=== PATIENT | male | born 1985 | race Caucasian/White ===

== ENCOUNTER 2022-08-12 14:38 | Observation (INO) | payer OTHER ==
--- OUTSIDE RECORDS SUMMARY | 2022-08-12 14:40 | XMS REPORT | Continuity of Care Document ---
:1985 Author Organization [facility] t Address [address] [place] [address] [place] [id number] Care Team Providers Name Role Phone WU BOWDEN Attending Clinician Unavailable Provider, [facility] Attending Clinician Unavailable Donal Shrestha Attending Clinician DONAL BLAKE Attending Clinician Unavailable Payers Payer Name Policy Type Policy Number Effective Date Expiration Date S lauren [employer] CHOICE POS [id number] 2018 00:00:00 II Problems Condition Condition Condition Status Onset Resolution Last Treating Co mments Source Name Details Category Date Date Treatment Clinician Date No known No known Disease Unive rs active active ity of problems problems [facility] Allergies, Adverse Reactions, Alerts Allergy Allergy Status Severity Reaction(s) Onset Inactive Treating Comm ents Source Name Type Date Date Clinician NO KNOWN Drug Active Univers ALLERGIE Class ity of [facility] Social History Social Habit Start Date Stop Date Quantity Comments Source Sex Assigned At [facility] Exposure to Not sure [facility] SARS-CoV-2 (event) Medica l Branch Tobacco use and 2019-12-30 2019-12-30 Never used [facility] exposure 00:00:00 00:00:00 [facility] Smoking Status Start Date Stop Date Source Never smoker [facility] Medications Ordered Filled Start Stop Current Ordering Indication Dosage Frequency Signature Comments Components Source Medication Medication Date Date Medication? Clinician (SIG) Name Name amoxicillin 2020- No [id number] 875mg Take 1 Univers 875 mg 12-29 tablet by ity of tablet 00:00: 04:59 mouth 2 [place] 00 :00 (two) Medical times [place] daily for 10 days. neomycin-po 2020- No [id number] 3[drp] Place 3 Univers lymyxin-hyd 12-29 Drops in ity of rocortisone 00:00: 04:59 left ear 3 [place] 3.5-10,000- 00 :00 (three) Medic al 1 times Branch mg/mL-unit/ daily for mL-% otic 7 days. susp levothyroxi Yes Univer s ne 100 mcg 10-29 ity of tablet 00:00: [address] Vital Signs Vital Name Observation Time Observation Value Comments Source Systolic blood 2019-12-30 18:54:00 115 mm[Hg] Univer [facility]ity of [facility] Diastolic blood 2019-12-30 18:54:00 78 mm[facility]Hg[facility] rate 2019-12-30 18:54:00 99 /min [facility] Body temperature 2019-12-30 18:54:00 37 Jennifer [facility] Respiratory rate 2019-12-30 18:54:00 18 /min [facility] Body height 2019-12-30 18:54:00 165.1 cm [facility] Body weight 2019-12-30 18:54:00 92.987 kg [facility] BMI 2019-12-30 18:54:00 34.11 kg/m2 [facility] Oxygen saturation in 2019-12-30 18:54:00 98 /min [facility] Arterial blood by [facility] Pulse oximetry Branch Procedures This patient has no known procedures. Encounters Start End Encounter Admission Attending Care Care Encounter Source Date/Time Date/Time Type Type Clinicians Facility Department ID 2020-01-19 2020-01-19 Outpatient R [facility] [id number] Univers 16:20:00 16:20:00 [id number]-01-19 2020-01-19 Outpatient R KAL, [facility] [id number] Univers 16:20:00 16:20:[address] [facility] 2019-12-30 2019-12-30 Urgent Provider, [facility] [id number] Univers 13:44:56 14:11:16 Donal Tong [facility] [id number] ity [place] [id number] Moe as Jose [phone] [place] [address] [address] 2019-12-30 2019-12-30 Outpatient R LOU [facility] [id number] Univers 14:00:00 14:00:00 DONAL galan [facility] Results This patient has no known results.
[2022-08-12 15:25] LABS: Absolute Lymphocytes (CBC) 2.2 K/uL (0.7-4.9); Lymphocytes % 24.8 % (15.3-44.8); MCV 89.5 fL (80-100); MPV 6.5 fL (7.6-11.3); RBC Red Blood Cell Count 5.27 M/uL (4.33-5.43)
[2022-08-12 15:37] LABS: Hematocrit 48.8 % (39.6-49.0)
[2022-08-12 15:50] LABS: BUN Blood Urea Nitrogen 18 mg/dL (7-18); Bicarbonate 26 mEq/L (21-32); Glomerular Filtration Rate 82 ml/min (=/>90); Glucose Level 96 mg/dL (74-106); Sodium Level 138 mEq/L (136-145); Thyroid Stimulating Hormone 0.027 uIU/mL (0.358-3.740); Troponin High Sensitivity 3.8 pg/mL (<58.9)
[2022-08-12 15:55] LABS: NT PRO-BNP < 5 pg/mL (<125); Potassium 3.7 mEq/L (3.5-5.1)
--- NOTE | 2022-08-12 16:11 | RAD REPORT ---
EXAM DESCRIPTION: RAD - Chest Single View - 08/12/2022 4:04 pm CLINICAL HISTORY: CHEST PAIN COMPARISON: No comparisonsNo comparisons FINDINGS: Lines: None. Lungs: No evidence of edema or pneumonia. Pleural: No significant pleural effusions or pneumothorax. Cardiac: The heart size is within normal limits. Mediastinum: Within normal limits. Bones: No acute fractures. Other: None IMPRESSION: No acute cardiopulmonary disease.
[2022-08-12] MEDS ORDERED: METOPROLOL TAR 50 MG TAB ONE (16:14)
--- NOTE | 2022-08-12 16:20 | EDPHYS ---
Physician Documentation [facility] Name: Balbir Pederson Age: 37 yrs Sex: Male : 1985 Arrival Date: 08/12/2022 Time: 14:41 Bed 14 Private MD: ED Physician Jan Mancia HPI: 08/12 14:55 This 37 yrs old Male presents to ER via Ambulatory with complaints of Chest Pain, High jh7 Blood Pressure. 14:55 Onset: The symptoms/episode began/occurred 1 week(s) ago. Associated signs and jh7 symptoms: Pertinent positives: tremors, HTN, Pertinent negatives: abdominal pain, fever, shortness of breath, vomiting, wheezing. 37-year-old male complains of chest pain for the past week that became slightly worse today. Also reports hand tremors and blood pressure of 174/108 at home. Denies a history of hypertension. Reports a past medical history of Chi's with hypothyroidism. Reports that his PCP is at the [facility].. Historical: - Allergies: 14:56 Red Dye; aa5 - PMHx: 14:56 Hypothyroidism; aa5 - Immunization history:: Adult Immunizations unknown. - Social history:: Smoking status: Patient denies any tobacco usage or history of. ROS: 14:55 Constitutional: Negative for fever, chills, and weight loss, Eyes: Negative for injury, jh7 pain, redness, and discharge, ENT: Negative for injury, pain, and discharge, Neck: Negative for injury, pain, and swelling, Cardiovascular: Negative for chest pain, palpitations, and edema, Respiratory: Negative for shortness of breath, cough, wheezing, and pleuritic chest pain, Abdomen/GI: Negative for abdominal pain, nausea, vomiting, diarrhea, and constipation, Back: Negative for injury and pain, MS/Extremity: Negative for injury and deformity, Skin: Negative for injury, rash, and discoloration. 14:55 Cardiovascular: Positive for chest pain, Negative for orthopnea, palpitations. 14:55 Neuro: Positive for tremor, Negative for altered mental status, headache, numbness, syncope, tingling. Exam: 14:58 Constitutional: This is a well developed, well nourished patient who is awake, alert, jh7 and in no acute distress. Head/Face: Normocephalic, atraumatic. Eyes: Pupils equal round and reactive to light, extra-ocular motions intact. Lids and lashes normal. Conjunctiva and sclera are non-icteric and not injected. Cornea within normal limits. Periorbital areas with no swelling, redness, or edema. Neck: Trachea midline, no thyromegaly or masses palpated, and no cervical lymphadenopathy. Supple, full range of motion without nuchal rigidity, or vertebral point tenderness. No Meningismus. Cardiovascular: Regular rate and rhythm with a normal S1 and S2. No gallops, murmurs, or rubs. Normal PMI, no JVD. No pulse deficits. Respiratory: Lungs have equal breath sounds bilaterally, clear to auscultation and percussion. No rales, rhonchi or wheezes noted. No increased work of breathing, no retractions or nasal flaring. Abdomen/GI: Soft, non-tender, with normal bowel sounds. No distension or tympany. No guarding or rebound. No evidence of tenderness throughout. Back: No spinal tenderness. No costovertebral tenderness. Full range of motion. Skin: Warm, dry with normal turgor. Normal color with no rashes, no lesions, and no evidence of cellulitis. MS/ Extremity: Pulses equal, no cyanosis. Neurovascular intact. Full, normal range of motion. Neuro: Awake and alert, GCS 15, oriented to person, place, time, and situation. Motor strength 5/5 in all extremities. Sensory grossly intact. Normal gait. Vital Signs: 14:50 BP 167 / 102; Pulse 106; Resp 18 S; Temp 98.3(TE); Pulse Ox 96% on R/A; Weight 92.53 kg aa5 (R); Height 5 ft. 5 in. (R); 15:16 BP 157 / 85; Pulse 102; Resp 16; Pulse Ox 97% on R/A; ss 15:40 BP 157 / 85; Pulse 110; Pulse Ox 97% on R/A; ss 16:06 BP 143 / 89; Pulse 100; ll1 17:14 BP 120 / 87; Pulse 108; Resp 16; Pulse Ox 95% on R/A; ll1 17:37 BP 117 / 81; Pulse 97; Resp 16; Pulse Ox 97% on R/A; Pain 2/10; ll1 14:50 Body Mass Index 33.95 (92.53 kg, 165.1 cm) aa5 17:37 Pain Scale: Adult ll1 MDM: 14:42 Patient medically screened. [facility] 16:29 Differential diagnosis: Acute VA, hypothyroidism, ACS, thyroid storm, anxiety. Data [facility] reviewed: vital signs, nurses notes, lab test result(s), EKG, radiologic studies, plain films. Consideration of Admission/Observation Patient was admitted/placed on observation. Management of patient was discussed with the following: Hospitalist: VAIBHAV Quijano for Dr. Muir. I considered the following discharge prescriptions or medication management in the emergency department Medications were administered in the Emergency Department. See MAR. Care significantly affected by the following chronic conditions: Chi's thyroiditis. Counseling: I had a detailed discussion with the patient and/or guardian regarding: the historical points, exam findings, and any diagnostic results supporting the discharge/admit diagnosis, the need for further work-up and treatment in the hospital. Response to treatment: the patient's symptoms have mildly improved after treatment. ED course: The patient remained hemodynamically stable throughout the ER visit. Reports that his chest pain improved after aspirin administration. Informed him that he would be admitted to the hospital for observation.. 08/12 14:53 Order name: Basic Metabolic Panel; Complete Time: 16:00 [facility] 08/12 14:53 Order name: CBC with Diff; Complete Time: 15:43 [facility] 08/12 14:53 Order name: NT PRO-BNP; Complete Time: 16:00 [facility] 08/12 14:53 Order name: Troponin HS; Complete Time: 16:00 [facility] 08/12 14:53 Order name: TSH; Complete Time: 16:00 [facility] 08/12 16:07 Order name: T4,Total [facility] 08/12 16:54 Order name: Urinalysis w/ reflexes [facility] 08/12 16:54 Order name: Basic Metabolic Panel [facility] 08/12 16:54 Order name: Basic Metabolic Panel [facility] 08/12 16:54 Order name: Basic Metabolic Panel [facility] 08/12 16:54 Order name: Basic Metabolic Panel [facility] 08/12 16:54 Order name: Lipid Profile [facility] 08/12 16:54 Order name: Lipid Profile [facility] 08/12 16:54 Order name: Troponin High Sensitivity [facility] 08/12 16:54 Order name: Troponin High Sensitivity [facility] 08/12 16:54 Order name: Troponin High Sensitivity [facility] 08/12 14:53 Order name: XRAY Chest (1 view); Complete Time: 16:13 [facility] 08/12 14:53 Order name: EKG; Complete Time: 14:54 [facility] 08/12 16:54 Order name: Heart Healthy [facility] 08/12 14:53 Order name: Cardiac monitoring; Complete Time: 14:54 [facility] 08/12 14:53 Order name: EKG - Nurse/Tech; Complete Time: 14:53 [facility] 08/12 14:53 Order name: IV Saline Lock; Complete Time: 15:11 [facility] 08/12 14:53 Order name: Labs collected and sent; Complete Time: 15:11 [facility] 08/12 14:53 Order name: O2 Per Protocol; Complete Time: 14:53 [facility] 08/12 14:53 Order name: O2 Sat Monitoring; Complete Time: 14:53 [facility] EC:58 Rate is 96 beats/min. Rhythm is regular. QRS [place] is Normal. WA interval is normal at [facility] 114 msec. QRS interval is normal at 92 msec. QT interval is normal at 320 msec. No Q waves. T waves are Normal. No ST changes noted. Clinical impression: Normal ECG. Administered Medications: 15:01 Drug: Aspirin PO Chewable Tablet 324 mg Route: PO; kc6 16:07 Follow up: Response: No adverse reaction ll1 16:14 Drug: Metoprolol PO 50 mg Route: PO; ll1 17:42 Follow up: Response: No adverse reaction 1 Disposition: 18:44 I agree with the assessment and plan of care. [facility] Disposition Summary: 08/12/22 16:19 Hospitalization Ordered Hospitalization Status: Observation [facility] Provider: Luis Muir [facility] Location: Telemetry/MedSurg (observation) [facility] Condition: Stable [facility] Problem: new [facility] Symptoms: are unchanged [facility] Bed/Room Type: Standard [facility] Room Assignment: 210(08/12/22 17:31) bd Diagnosis - Chest pain, unspecified [facility] - Hyperthyroidism [facility] Forms: - Medication Reconciliation Form [facility] - SBAR form [facility] Signatures: Dispatcher [employer] [facility] Krystin Buenrostro Audri, RN RN aa5 Virgilio Mcclellan RN RN ll1 Jan Mancia MD MD 11 Saira White FNP BULLET SWAGING MACHINE OPERATOR jh7 Ashley Gates RN RN kc6 Corrections: (The following items were deleted from the chart) 17:31 16:19 frank osorio
--- NOTE | 2022-08-12 16:20 | ER ---
Nurse's Notes [facility] Name: Balbir Pederson Age: 37 yrs Sex: Male : 1985 Arrival Date: 08/12/2022 Time: 14:41 Bed 14 Private MD: Diagnosis: Chest pain, unspecified;Hyperthyroidism Presentation: 08/12 14:50 Chief complaint: Patient states: chest pain x 1 week ago and worse today. Pt also aa5 reports tremors. 14:50 Coronavirus screen: At this time, the client does not indicate any symptoms associated aa5 with coronavirus-19. Ebola Screen: Patient denies travel to an Ebola-affected area in the 21 days before illness onset. Initial Sepsis Screen: Does the patient meet any 2 criteria? HR > 90 bpm. Does the patient have a suspected source of infection? No. Patient's initial sepsis screen is negative. Risk Assessment: Do you want to hurt yourself or someone else? Patient reports no desire to harm self or others. Onset of symptoms was July 2022. 14:50 Method Of Arrival: Ambulatory aa5 14:50 Acuity: SÁNCHEZ 3 aa5 Historical: - Allergies: 14:56 Red Dye; aa5 - PMHx: 14:56 Hypothyroidism; aa5 - Immunization history:: Adult Immunizations unknown. - Social history:: Smoking status: Patient denies any tobacco usage or history of. Screenin:42 [facility] ED Fall Risk Assessment (Adult) Score/Fall Risk Level 0 - 2 = Low Risk ss Oriented to surroundings, Maintained a safe environment, Educated pt \T\ family on fall prevention, incl call for assistance when getting out of bed, Hourly rounding (assess needs \T\ fall precautionary measures) done. Abuse screen: Denies threats or abuse. Nutritional screening: No deficits noted. Tuberculosis screening: No symptoms or risk factors identified. Assessment: 15:10 General: Appears uncomfortable, Behavior is cooperative, appropriate for age. General: ss Reports tremors off/on. Pain: Complains of pain in chest Quality of pain is described as aching, Pain began 1 week Is intermittent. Neuro: Reports tremors. Cardiovascular: Reports chest pain. 16:10 Reassessment: No changes from previously documented assessment. Patient and/or family ll1 updated on plan of care and expected duration. Pain level reassessed. Patient is alert, oriented x 3, equal unlabored respirations, skin warm/dry/pink. Karl White PLASTIC SURGERY ASSISTANT at . 16:55 Reassessment: No changes from previously documented assessment. Patient and/or family ll1 updated on plan of care and expected duration. Pain level reassessed. Patient is alert, oriented x 3, equal unlabored respirations, skin warm/dry/pink. 17:38 Reassessment: No changes from previously documented assessment. Patient and/or family ll1 updated on plan of care and expected duration. Pain level reassessed. Patient is alert, oriented x 3, equal unlabored respirations, skin warm/dry/pink. 17:41 Reassessment: No changes from previously documented assessment. Report given to Kellen Del Castillo RN. 17:42 Pain: Pain does not radiate. 1 Vital Signs: 14:50 BP 167 / 102; Pulse 106; Resp 18 S; Temp 98.3(TE); Pulse Ox 96% on R/A; Weight 92.53 kg aa5 (R); Height 5 ft. 5 in. (R); 15:16 BP 157 / 85; Pulse 102; Resp 16; Pulse Ox 97% on R/A; ss 15:40 BP 157 / 85; Pulse 110; Pulse Ox 97% on R/A; ss 16:06 BP 143 / 89; Pulse 100; ll1 17:14 BP 120 / 87; Pulse 108; Resp 16; Pulse Ox 95% on R/A; ll1 17:37 BP 117 / 81; Pulse 97; Resp 16; Pulse Ox 97% on R/A; Pain 2/10; ll1 14:50 Body Mass Index 33.95 (92.53 kg, 165.1 cm) aa5 17:37 Pain Scale: Adult ll1 ED Course: 14:41 Patient arrived in ED. mr 14:41 [facility] 14:41 Jan Mancia MD is Attending Physician. jh7 14:50 Arm band placed on Patient placed in an exam room, on a stretcher. aa5 14:53 Virgilio Mcclellan, MARLY is Primary Nurse. 1 14:56 Triage completed. aa5 15:11 Inserted saline lock: 20 gauge in right antecubital area, using aseptic technique. ss Blood collected. 15:42 Patient has correct armband on for positive identification. Bed in low position. Call ss light in reach. Side rails up X2. Client placed on continuous cardiac and pulse oximetry monitoring. NIBP monitoring applied. beauty artist on. 15:43 No provider procedures requiring assistance completed. Patient maintains SpO2 ss saturation greater than 95% on room air. 16:05 XRAY Chest (1 view) In Process Unspecified. EDNY 16:18 Luis Muir is Hospitalizing Provider. [facility] 17:42 Patient admitted, IV remains in place. ll1 Administered Medications: 15:01 Drug: Aspirin PO Chewable Tablet 324 mg Route: PO; kc6 16:07 Follow up: Response: No adverse reaction 1 16:14 Drug: Metoprolol PO 50 mg Route: PO; 1 17:42 Follow up: Response: No adverse reaction [facility] Medication: 15:42 VIS not applicable for this client. ss Outcome: 16:19 Decision to Hospitalize by Provider. [facility] 17:42 Admitted to Tele accompanied by tech, via wheelchair, room 210, with chart, Report 1 called to Kellen Del Castillo 17:42 Condition: stable 17:42 Instructed on the need for admit. 17:53 Patient left the ED. [facility] Signatures: Dispatcher [employer] LANETTENY MccurdyDaja ortiz mr MccarthyJoi, RN RN hoa5 Yesi De La Garza RN RN Virgilio Hernandez RN RN ll1 Saira White, BANQUET LINE COOK BANQUET LINE COOK Ashley Vasquez, RN RN kc6
--- NOTE | 2022-08-12 16:43 | P.HP ---
Certification for Inpatient Patient admitted to: Observation With expected LOS: <2 Midnights Patient will require the following post-hospital care: None Practitioner: I am a practitioner with admitting privileges, knowledge of patient current condition, hospital course, and medical plan of care. Services: Services provided to patient in accordance with Admission requirements found in Title 42 Section 412.3 of the Code of Federal Regulations Patient History Date of Service: 08/12/22 Reason for admission: Chest pain, HTN History of Present Illness: This is a 37-year-old male with past medical history significant for hypothyroidism. Patient comes to the emergency room with complaints of chest pain and hypertension. Patient reported symptoms started 2 weeks ago with complaints of chest pain, vision changes, palpitation, headaches, chills, and tremors and numbness. He stated his chest pain was 4 out of 10, nonradiating and stabbing in nature. No other contributing factors reported by patient. Patient is currently on Synthroid 225 mcg daily. 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 Patient's chest pain was resolved after taking aspirin in the ER. His blood pressure was 174/108 at home, and in the ED it improved to 145/89. Patient will be admitted under observation under the care of Dr. Muir. We will rule out ACS. Allergies iodine [Iodine] Allergy (Verified 09/17/11 09:43) Hives/Rash Home medications list reviewed: Yes - Past Medical/Surgical History Diabetic: No -: Hypothyroidism Past Surgical History: Patient denies surgical history - Family History Family History: Reviewed- Non-Contributory - Social History Smoking Status: Never smoker Alcohol use: Yes CD- Drugs: No Caffeine use: Yes Place of Residence: Home Review of Systems 10-point ROS is otherwise unremarkable Eyes: Vision Change Cardiovascular: Chest Pain, Palpitations Neurological: Numbness Physical Examination - Vital Signs Temperature: 98.3 F Blood Pressure: 143/89 Pulse: 100 Respirations: 18 Pulse Ox (%): 100 - Physical Exam General: Alert, In no apparent distress, Oriented x3 HEENT: Atraumatic, Normocephalic, PERRLA Neck: Supple Respiratory: Clear to auscultation bilaterally, Normal air movement Cardiovascular: No edema, Normal pulses, Regular rate/rhythm Gastrointestinal: Normal bowel sounds Musculoskeletal: No clubbing, No swelling, No contractures Integumentary: No rashes, No breakdown Neurological: Normal speech, Normal strength at 5/5 x4 extr, Normal tone, Sensation intact Lymphatics: No axilla or inguinal lymphadenopathy - Studies Laboratory Data (last 24 hrs) 08/12/22 15:08: WBC 8.80, Hgb 16.9, Hct 48.8, Plt Count 339 08/12/22 15:08: Sodium 138, Potassium 3.7, BUN 18, Creatinine 1.18, Glucose 96 Assessment and Plan - Plan Assessment Chest pain rule out ACS Hyperthyroidism with history of hypothyroidism HTN Obesity Plan ACS rule out work-up Continue telemetry TSH 0.027, T4 pending Hold home dose of Synthroid Labetalol as needed for SBP>160 and HR >120 bpm Educated on lifestyle modification DVT PPX- Lovenox Full code Discharge Plan: Home Plan to discharge in: 24 Hours - Advance Directives Does patient have a Living Will: No Does patient have a Durable POA for Healthcare: No - Code Status/Comfort Care Code Status Assessed: Yes (Full code) Critical Care: No Time Spent Managing Pts Care (In Minutes): 50
[2022-08-12] MEDS ORDERED: ONDANSETRON 4 MG/2 ML VIAL IV PRN (16:48)
[2022-08-12] MEDS ORDERED: ACETAMINOPHEN 500 MG TAB PO PRN (16:48)
[2022-08-12] MEDS ORDERED: LABETALOL 20 MG/4ML SYRINGE IV PRN (16:50)
[2022-08-12] MEDS ORDERED: INFLUENZA VACCINE (for 6+ mo) 0.5 ML DOSE IMVAC ONE (21:30)
[2022-08-12 22:03] VITALS: BMI 33.8
[2022-08-13 02:29] LABS: Urine Bacteria <20 /HPF (<20); Urine Mucus Slight /HPF (None Seen); Urine RBC <5 /HPF (None Seen)
[2022-08-13 03:11] LABS: Specific Gravity 1.022 (1.005-1.030); Urine Bilirubin NEGATIVE (Negative); Urine Blood Negative (Negative); Urine Clarity Clear (Clear); Urine Color Light-Yellow (Yellow); Urine Glucose Negative (Negative); Urine Protein Negative (Negative)
[2022-08-13 03:12] LABS: Urine Ascorbic Acid Negative (Negative); Urine Urobilinogen 0.2 (Normal)
[2022-08-13 03:34] LABS: Potassium 3.6 mEq/L (3.5-5.1)
[2022-08-13 05:04] VITALS: O2SAT 99
[2022-08-13 08:48] VITALS: BP 118/70; TEMP 97.4
[2022-08-13] MEDS ORDERED: ASPIRIN 81 MG CHEWABLE TABLET PO SCH (09:00)
[2022-08-13] MEDS ORDERED: ENOXAPARIN 40 MG/0.4 ML SQ SCH (09:00)
--- NOTE | 2022-08-13 09:03 | P.DS ---
Admission Date: 08/12/22 Discharge Date: 08/13/22 Disposition: ROUTINE DISCHARGE Discharge Condition: FAIR Reason for Admission: Chest pain, HTN - Problems (1) Chest pain Status: Acute (2) Hyperthyroidism Status: Acute Brief History of Present Illness: This is a 37-year-old male with past medical history significant for hypothyroidism. Patient comes to the emergency room with complaints of chest pain and hypertension. Patient reported symptoms started 2 weeks ago with complaints of chest pain, vision changes, palpitation, headaches, chills, and tremors and numbness. He stated his chest pain was 4 out of 10, nonradiating and stabbing in nature. No other contributing factors reported by patient. Patient is currently on Synthroid 225 mcg daily. 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 Patient's chest pain was resolved after taking aspirin in the ER. His blood pressure was 174/108 at home, and in the ED it improved to 145/89. Patient placed under observation for further management. Hospital Course: Troponin trended negative. Patient was chest pain-free during the hospital stay. Noted he had tachycardia on presentation. Patient refused his chest pain was mostly palpitation. ACS ruled out. His TSH was very low and T4 elevated indicating hypothyroidism. Synthroid not given yesterday. His Synthroid dose was decreased from 225 to 175 mcg daily and informed to follow-up with his information technology program manager. He is currently asymptomatic. Vital Signs/Physical Exam: Temp Pulse Resp BP Pulse Ox 97.4 F 75 16 118/70 96 08/13/22 08:00 08/13/22 08:00 08/13/22 08:00 08/13/22 08:00 08/13/22 08:00 General: Alert, In no apparent distress, Oriented x3 HEENT: Mucous membr. moist/pink Neck: JVD not distended Respiratory: Clear to auscultation bilaterally, Normal air movement Cardiovascular: Regular rate/rhythm, Normal S1 S2 Gastrointestinal: Normal bowel sounds, Soft and benign, Non-distended, No tenderness Musculoskeletal: No swelling Integumentary: No rashes Neurological: Normal strength at 5/5 x4 extr Laboratory Data at Discharge: WBC 8.80 thou/uL (4.3-10.9) 08/12/22 15:08 Hgb 16.9 g/dL (13.6-17.9) 08/12/22 15:08 Hct 48.8 % (39.6-49.0) 08/12/22 15:08 Plt Count 339 thou/uL (152-406) 08/12/22 15:08 Sodium 137 mEq/L (136-145) 08/13/22 02:50 Potassium 3.6 mEq/L (3.5-5.1) 08/13/22 02:50 BUN 19 mg/dL (7-18) H 08/13/22 02:50 Creatinine 1.18 mg/dL (0.70-1.30) 08/13/22 02:50 Glucose 95 mg/dL (74-106) 08/13/22 02:50 Triglycerides 132 mg/dL (<150) 08/13/22 02:50 Cholesterol 164 mg/dL (<200) 08/13/22 02:50 HDL Cholesterol 35 mg/dL (40-60) L 08/13/22 02:50 Cholesterol/HDL Ratio 4.69 08/13/22 02:50 Home Medications: Albuterol Inhaler [Ventolin Inhaler*] 2 puff IH PRN PRN 08/12/22 Aspirin Chewable [Aspirin Chewable*] 81 mg PO DAILY #30 tab.chew 08/13/22 Levothyroxine Sodium 175 mcg PO DAILY #30 tab 08/13/22 New Medications: Aspirin Chewable [Aspirin Chewable*] 81 mg PO DAILY #30 tab.chew Levothyroxine Sodium 175 mcg PO DAILY #30 tab Diet: AHA Activity: Ad melvina Followup: NONE,NONE [Primary Care Provider] - 1 Week
--- NOTE | 2022-08-13 13:42 | EKG ---
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
== END 2022-08-13 09:30 | disposition home or self-care (01) ==
LOC: ER 14:38 → ERHOLD 16:43 → 2ND 17:41
PROVIDERS: ADMIT Internal Medicine; ATTEND Internal Medicine
DX: E05.90 Thyrotoxicosis, unspecified without thyrotoxic crisis or storm (principal); E03.9 Hypothyroidism, unspecified; I10 Essential (primary) hypertension; R00.0 Tachycardia, unspecified; E06.3 Autoimmune thyroiditis; E66.9 Obesity, unspecified; Z68.33 Body mass index [BMI] 33.0-33.9, adult
CPT/HCPCS: 93005; 85025; 81001; 80048 ×2; 36415; 80061; 84436; 84443; 84484 ×3; 83880; 71045; 99285; J1650; G0378 ×3